=== PATIENT | female | born 1950 | race African-American/Black ===

== ENCOUNTER 2019-06-22 23:00 | Inpatient (IN) | payer MEDICARE, MEDICAID ==
[~2019-06-22] VITALS: Ht 165.1 cm; Wt 73.5 kg
[2019-06-22 23:00] VITALS: BP 140/59
[~2019-06-22 23:00] MED LIST: AMLO5TAB4 PO; ATOR80TA PO; FAMO40TA70 PO; GABA300C PO; LISI40TA4 PO; WARF5TAB76 PO
[2019-06-23] VITALS: BP 140/59
[2019-06-23] MEDS ORDERED: CLONIDINE 0.1MG TABLET PO PRN (00:45)
[2019-06-23] MEDS ORDERED: HYDROCODONE/ACETAMINOPHEN 5/325MG TABLET PO PRN ×2 (00:45→13:00)
[2019-06-23] MEDS ORDERED: ATOR20TA65 MT (01:37)
[2019-06-23] MEDS ORDERED: LOPHC2 MT (01:38)
[2019-06-23] MEDS ORDERED: KEPP500 MT (01:38)
[2019-06-23] MEDS ORDERED: AMLO5TAB4 MT (01:38)
[2019-06-23] MEDS ORDERED: LORA-250 MT (01:38)
[2019-06-23 04:00] VITALS: BP 148/91
[2019-06-23 08:00] VITALS: BP 157/77
[2019-06-23 08:58] VITALS: BP 157/77
[2019-06-23] MEDS ORDERED: LORAZEPAM 1MG TABLET PO PRN (09:00)
[2019-06-23] MEDS: LISINOPRIL 40MG TABLET PO SCH (09:34)
[2019-06-23] MEDS: AMLODIPINE 5MG TABLET PO SCH (09:34)
[2019-06-23] MEDS: LEVETIRACETAM 500MG TABLET PO SCH ×2 (09:35→18:26)
[2019-06-23] MEDS: METOPROLOL TARTRATE 25MG TABLET PO SCH ×2 (09:35→22:29)
[2019-06-23] MEDS ORDERED: HYDRALAZINE 20MG/ML VIAL IV PRN (13:00)
[2019-06-23] MEDS ORDERED: DEXTROSE 50% WATER 50ML SYRINGE IV PRN (13:00)
[2019-06-23] MEDS ORDERED: DIPHENHYDRAMINE 50MG/ML VIAL IV PRN (13:00)
[2019-06-23] MEDS ORDERED: DOCUSATE SODIUM 100MG CAPSULE PO PRN (13:00)
[2019-06-23 16:20] VITALS: BP 114/72
[2019-06-23] MEDS: BLOOD SUGAR DIAGNOSTIC STRIP TEST SCH ×2 (17:20→21:00)
[2019-06-23 17:28] LABS: HEMATOCRIT 36.1 % (36.0-48.0); HEMOGLOBIN 11.6 g/dL (12.0-16.0); MEAN CORPUSCULAR VOLUME 80.9 fL (81.0-99.0); PLATELET 173 x1000/uL (130-400); RED BLOOD CELL COUNT 4.46 mill/uL (4.2-5.4); RED CELL DISTRIBUTION WIDTH 15.8 % (11.6-14.6)
[2019-06-23 17:33] LABS: CHLORIDE 109 mEq/L (98-107)
[2019-06-23 17:43] LABS: LDL CHOLESTEROL 103 mg/dL (5-100)
[2019-06-23 17:45] LABS: HDL CHOLESTEROL 55 mg/dL (40-59)
[2019-06-23 17:49] LABS: T4 FREE 1.05 ng/dL (0.76-1.46)
[2019-06-23] MEDS: INSULIN LISPRO 100 UNITS/ML SUBCUT SCH ×2 (17:50→21:00)
[2019-06-23 20:00] VITALS: BP 147/84
[2019-06-23] MEDS: ATORVASTATIN CALCIUM 20MG TABLET PO SCH (22:25)
[2019-06-23] MEDS: GABAPENTIN 300MG CAPSULE PO SCH (22:26)
[2019-06-24 04:00] VITALS: BP_SYST 149; BP_SYST 165; BP_SYST 167; BP_DIAS 87; BP_DIAS 91; BP_DIAS 99
[2019-06-24] MEDS: BLOOD SUGAR DIAGNOSTIC STRIP TEST SCH ×4 (07:20→20:53)
[2019-06-24] MEDS: INSULIN LISPRO 100 UNITS/ML SUBCUT SCH ×4 (07:50→21:58)
[2019-06-24 07:51] LABS: HEMATOCRIT 36.2 % (36.0-48.0); HEMOGLOBIN 11.8 g/dL (12.0-16.0); MEAN CORPUSCULAR HEMOGLOBIN 26.2 pg (28.0-32.0); MEAN CORPUSCULAR VOLUME 80.4 fL (81.0-99.0); PLATELET 181 x1000/uL (130-400); RED CELL DISTRIBUTION WIDTH 16.3 % (11.6-14.6)
[2019-06-24 07:59] LABS: CHLORIDE 107 mEq/L (98-107)
[2019-06-24 08:00] VITALS: BP 153/75
[2019-06-24] MEDS: LEVETIRACETAM 500MG TABLET PO SCH ×2 (08:54→16:58)
[2019-06-24] MEDS: LISINOPRIL 40MG TABLET PO SCH (08:54)
[2019-06-24] MEDS: AMLODIPINE 5MG TABLET PO SCH ×2 (08:55→17:04)
[2019-06-24] MEDS: METOPROLOL TARTRATE 25MG TABLET PO SCH ×2 (08:55→20:49)
[2019-06-24] MEDS: ASPIRIN 81MG TABLET PO SCH (08:55)
[2019-06-24] MEDS: ENOXAPARIN 40MG/0.4ML SYR SUBCUT SCH (09:07)
[2019-06-24] MEDS ORDERED: LOSARTAN POTASSIUM 25 MG TABLET PO SCH (11:15)
[2019-06-24 12:00] VITALS: BP 149/87
[2019-06-24] MEDS ORDERED: CLONIDINE 0.2MG TABLET PO PRN (15:45)
[2019-06-24 16:00] VITALS: BP 132/69
[2019-06-24] MEDS: AMIODARONE HCL 200 MG TABLET PO SCH ×2 (17:58→20:48)
[2019-06-24 20:00] VITALS: BP_SYST 153; BP_SYST 165; BP_DIAS 81; BP_DIAS 88
[2019-06-24] MEDS: GABAPENTIN 300MG CAPSULE PO SCH (20:48)
[2019-06-24] MEDS: LOSARTAN POTASSIUM 25 MG TABLET PO SCH (20:48)
[2019-06-24] MEDS: ATORVASTATIN CALCIUM 20MG TABLET PO SCH (20:49)
[2019-06-25] VITALS: BP 156/77
[2019-06-25 04:00] VITALS: BP 149/84
[2019-06-25] MEDS: BLOOD SUGAR DIAGNOSTIC STRIP TEST SCH ×4 (06:51→21:00)
[2019-06-25 06:56] LABS: CHLORIDE 106 mEq/L (98-107)
[2019-06-25 07:02] LABS: HEMOGLOBIN 11.9 g/dL (12.0-16.0); MEAN CORPUSCULAR HEMOGLOBIN 25.9 pg (28.0-32.0); MEAN CORPUSCULAR VOLUME 80.2 fL (81.0-99.0); PLATELET 192 x1000/uL (130-400); RED BLOOD CELL COUNT 4.61 mill/uL (4.2-5.4); RED CELL DISTRIBUTION WIDTH 15.8 % (11.6-14.6)
[2019-06-25 07:08] LABS: CREATINE KINASE 161 IU/L (26-192)
[2019-06-25 07:11] LABS: CREATINE KINASE MB FRACTION 1.1 ng/mL (0.5-3.6)
[2019-06-25] MEDS: INSULIN LISPRO 100 UNITS/ML SUBCUT SCH ×4 (07:50→21:00)
[2019-06-25] MEDS: LOSARTAN POTASSIUM 25 MG TABLET PO SCH ×2 (10:38→22:13)
[2019-06-25] MEDS: LISINOPRIL 40MG TABLET PO SCH (10:38)
[2019-06-25] MEDS: LEVETIRACETAM 500MG TABLET PO SCH ×2 (10:39→17:25)
[2019-06-25] MEDS: AMLODIPINE 5MG TABLET PO SCH ×2 (10:39→17:25)
[2019-06-25] MEDS: ASPIRIN 81MG TABLET PO SCH (10:39)
[2019-06-25] MEDS: METOPROLOL TARTRATE 25MG TABLET PO SCH ×2 (10:39→22:13)
[2019-06-25] MEDS: AMIODARONE HCL 200 MG TABLET PO SCH ×2 (10:39→22:24)
[2019-06-25] MEDS: ENOXAPARIN 40MG/0.4ML SYR SUBCUT SCH (10:40)
[2019-06-25 11:53] VITALS: BP 138/75
[2019-06-25 16:00] VITALS: BP 142/81
[2019-06-25 20:00] VITALS: BP_SYST 133; BP_SYST 138; BP_DIAS 86; BP_DIAS 97
[2019-06-25] MEDS: ATORVASTATIN CALCIUM 20MG TABLET PO SCH (22:13)
[2019-06-25] MEDS: GABAPENTIN 300MG CAPSULE PO SCH (22:13)
[2019-06-26] VITALS (7 sets, daily range): BP systolic 118–154; BP diastolic 57–89
[2019-06-26] MEDS: BLOOD SUGAR DIAGNOSTIC STRIP TEST SCH ×4 (07:20→21:00)
[2019-06-26] MEDS: INSULIN LISPRO 100 UNITS/ML SUBCUT SCH ×4 (07:50→21:00)
[2019-06-26] MEDS: AMIODARONE HCL 200 MG TABLET PO SCH ×2 (09:01→22:05)
[2019-06-26] MEDS: ASPIRIN 81MG TABLET PO SCH (09:03)
[2019-06-26] MEDS: AMLODIPINE 5MG TABLET PO SCH ×2 (09:03→18:38)
[2019-06-26] MEDS: LISINOPRIL 40MG TABLET PO SCH (09:03)
[2019-06-26] MEDS: LOSARTAN POTASSIUM 25 MG TABLET PO SCH ×2 (09:03→22:11)
[2019-06-26] MEDS: LEVETIRACETAM 500MG TABLET PO SCH ×2 (09:03→18:36)
[2019-06-26] MEDS: ENOXAPARIN 40MG/0.4ML SYR SUBCUT SCH (09:04)
[2019-06-26] MEDS: METOPROLOL TARTRATE 25MG TABLET PO SCH ×2 (09:08→22:05)
[2019-06-26] MEDS: ATORVASTATIN CALCIUM 20MG TABLET PO SCH (22:06)
[2019-06-26] MEDS: GABAPENTIN 300MG CAPSULE PO SCH (22:06)
[2019-06-27 00:42] VITALS: BP 141/71
[2019-06-27 04:00] VITALS: BP 139/68
[2019-06-27] MEDS: BLOOD SUGAR DIAGNOSTIC STRIP TEST SCH ×4 (07:16→20:24)
[2019-06-27] MEDS: INSULIN LISPRO 100 UNITS/ML SUBCUT SCH ×4 (07:16→20:24)
[2019-06-27 08:00] VITALS: BP_SYST 149; BP_SYST 162; BP_DIAS 70; BP_DIAS 99
[2019-06-27] MEDS: METOPROLOL TARTRATE 25MG TABLET PO SCH ×2 (09:00→20:20)
[2019-06-27] MEDS: LOSARTAN POTASSIUM 25 MG TABLET PO SCH ×2 (09:16→20:23)
[2019-06-27] MEDS: ASPIRIN 81MG TABLET PO SCH (09:16)
[2019-06-27] MEDS: AMLODIPINE 5MG TABLET PO SCH ×2 (09:16→17:45)
[2019-06-27] MEDS: AMIODARONE HCL 200 MG TABLET PO SCH ×2 (09:16→20:20)
[2019-06-27] MEDS: LISINOPRIL 40MG TABLET PO SCH (09:16)
[2019-06-27] MEDS: LEVETIRACETAM 500MG TABLET PO SCH ×2 (09:16→17:45)
[2019-06-27] MEDS: ENOXAPARIN 40MG/0.4ML SYR SUBCUT SCH (09:17)
[2019-06-27 12:00] VITALS: BP 132/61
[2019-06-27] MEDS: APIXABAN 2.5 MG TABLET PO SCH ×2 (12:33→17:45)
[2019-06-27 16:00] VITALS: BP 157/79
[2019-06-27 16:03] VITALS: BP 150/77
[2019-06-27] MEDS: GABAPENTIN 300MG CAPSULE PO SCH (20:21)
[2019-06-27] MEDS: ATORVASTATIN CALCIUM 20MG TABLET PO SCH (20:21)
== END 2019-06-27 21:02 | disposition home or self-care (01) | DRG 71 ==
LOC: 6WST 23:00
PROVIDERS: ADMIT Internal Medicine; ATTEND Internal Medicine
DX: G93.41 Metabolic encephalopathy (principal); D68.59 Other primary thrombophilia; I42.9 Cardiomyopathy, unspecified; R47.01 Aphasia; I48.0 Paroxysmal atrial fibrillation; E11.9 Type 2 diabetes mellitus without complications; R26.9 Unspecified abnormalities of gait and mobility; E78.5 Hyperlipidemia, unspecified; I10 Essential (primary) hypertension; M48.061 Spinal stenosis, lumbar region without neurogenic claudication; Z86.73 Personal history of transient ischemic attack (TIA), and cerebral infarction without residual deficits; E78.00 Pure hypercholesterolemia, unspecified; I08.1 Rheumatic disorders of both mitral and tricuspid valves; I25.10 Atherosclerotic heart disease of native coronary artery without angina pectoris; I27.20 Pulmonary hypertension, unspecified; Z95.1 Presence of aortocoronary bypass graft
CPT/HCPCS: 36415; 70551; 71045; 72148; 78582; 80048; 80061; 82550; 82553; 82962; 83036; 83735; 84439; 84443; 84484; 85027; 85379; 92610; 93005; 93306; 93880; 93970; 97162; A9558; J1650; J1815